=== PATIENT | male | born 2000 | race Caucasian/White ===

== ENCOUNTER 2022-07-22 09:35 | Emergency (ER) | payer BC ==
[2022-07-22] MEDS ORDERED: Diazepam 5 MG Tab PO ONE (10:04)
[2022-07-22] MEDS ORDERED: Ketorolac 30 MG/ML SDV IM STA (10:04)
== END 2022-07-22 10:12 | disposition home or self-care (01) ==
LOC: MW.ED 09:35
DX: S39.012A Strain of muscle, fascia and tendon of lower back, initial encounter (principal); F17.210 Nicotine dependence, cigarettes, uncomplicated; Z88.0 Allergy status to penicillin; Z79.899 Other long term (current) drug therapy; X50.0XXA Overexertion from strenuous movement or load, initial encounter; Y99.0 Civilian activity done for income or pay
CPT/HCPCS: 99283; A9270

== ENCOUNTER 2023-11-16 13:35 | Emergency (ER) | payer SELFPAY ==
[2023-11-16] MEDS: Proparacaine 0.5% Ophth Soln 15 ML Bottle EYERT STA (14:47)
== END 2023-11-16 15:50 | disposition left against medical advice (07) ==
LOC: MW.ED 13:35
DX: T15.11XA Foreign body in conjunctival sac, right eye, initial encounter (principal); Z88.0 Allergy status to penicillin
CPT/HCPCS: 99283; J3490

== ENCOUNTER 2024-08-14 11:28 | Emergency (ER) | payer SELFPAY ==
[2024-08-14] MEDS: Diphtheria,Pertussis(Acell),Tetanus Vaccine 0.5 ML Syringe IM ONE (12:22)
== END 2024-08-14 12:24 | disposition home or self-care (01) ==
LOC: MW.ED 11:28
DX: S61.210A Laceration without foreign body of right index finger without damage to nail, initial encounter (principal); Z88.0 Allergy status to penicillin; Z23 Encounter for immunization; W26.0XXA Contact with knife, initial encounter; Y93.89 Activity, other specified
CPT/HCPCS: 12001; 90471; 90715; 99282-25

== ENCOUNTER 2025-05-23 05:02 | Inpatient (IN) | payer MEDICAID ==
[2025-05-23] MEDS: Ketorolac 30 MG/ML SDV IM ONE (05:47)
[2025-05-23 08:39] LABS: BASOPHILS ABSOLUTE AUTO 0.07 K/uL (0.00-0.20); BASOPHILS PERCENT AUTO 0.6 % (0.0-1.0); EOSINOPHILS ABSOLUTE AUTO 0.22 K/uL (0.00-0.45); EOSINOPHILS PERCENT AUTO 2.0 % (0.0-6.0); IMMATURE GRAN ABSOLUTE AUTO 0.04 K/uL (0.00-0.05); IMMATURE GRAN PERCENT AUTO 0.4 % (0.0-0.4); LYMPHOCYTES ABSOLUTE AUTO 3.81 K/uL (1.00-4.80); LYMPHOCYTES PERCENT AUTO 33.9 % (24.0-44.0); MEAN PLATELET VOLUME 9.8 fL (9.4-12.4); MONOCYTES ABSOLUTE AUTO 1.19 K/uL (0.00-0.80); MONOCYTES PERCENT AUTO 10.6 % (0.0-8.0); NEUTROPHILS ABSOLUTE AUTO 5.90 K/uL (1.80-7.70); NEUTROPHILS PERCENT AUTO 52.5 % (41.0-71.0); NRBC ABSOLUTE 0.00 K/uL (0.00-0.02); NRBC PERCENT 0.0 /100WBC (0.0-0.2); PLATELET COUNT,PLT 249 K/uL (150-400); RED BLOOD CELL COUNT 4.88 M/uL (4.52-5.90); WHITE BLOOD CELL COUNT,WBC 11.23 K/uL (3.9-11.3)
[2025-05-23 09:05] LABS: A/G RATIO 0.9 (0.9-1.6); ALANINE AMINOTRANSFERASE,ALT 22.0 IU/L (14-63); ASPARTATE AMNIOTRANSFERASE,AST 15.0 IU/L (15-37); BILIRUBIN TOTAL 0.4 mg/dL (0.2-1.0); BLOOD UREA NITROGEN,BUN 9.0 mg/dL (7.0-18.0); CARBON DIOXIDE,CO2 26.0 mmol/L (21.0-32.0); CHLORIDE,CL 106.0 mmol/L (98-107); CREATININE 1.3 mg/dL (0.8-1.3); EST CRCL DRUG DOSING (CG) 99.88 mL/min; ETHANOL BLOOD MEDICAL 129.0 mg/dL; GLUCOSE RANDOM 102.0 mg/dL (74-106); POTASSIUM,K 3.7 mmol/L (3.5-5.1); PROTEIN TOTAL,TP 7.4 g/dL (6.4-8.2); SODIUM,NA 142.0 mmol/L (136-148)
[2025-05-23 09:06] LABS: ESTIMATED GFR 79.0 mL/min (>60)
[2025-05-23] MEDS: Iopamidol 755 MG/ML 500 ML Multipack Bottle IVPUSH STA (09:36)
[2025-05-23] MEDS ORDERED: Heparin Sodium 5,000 Units/ML Vial IVPUSH ONE (10:48)
[2025-05-23 11:14] LABS: AMPHETAMINES SCREEN, URINE NEGATIVE (CUTOFF=500); BUPRENORPHINE SCREEN,URINE NEGATIVE (CUTOFF=10); METHADONE SCREEN, URINE NEGATIVE (CUTOFF=200); METHAMPHETAMINES SCREEN, URINE NEGATIVE (CUTOFF=500); OXYCODONE SCREEN,URINE NEGATIVE (CUT0FF=100); PCP SCREEN,URINE NEGATIVE (CUTOFF=25); THC SCREEN,URINE 20 NG/ML PRESUMPTIVE POSITIVE (CUTOFF=50)
[2025-05-23] MEDS: Heparin Sodium/0.45% NaCl 25,000 UNITS/250 ML BAG IV SCH (11:19)
[2025-05-23] MEDS: Heparin Sodium 5,000 Units/ML Vial IVPUSH ONE (11:19)
[2025-05-23] MEDS ORDERED: PHENobarbital Sodium 130 MG/ML SDV IVPUSH PRN (11:45)
[2025-05-23] MEDS ORDERED: Naloxone 0.4 MG/ML SDV IVPUSH PRN (11:46)
[2025-05-23] MEDS ORDERED: Ondansetron 4 MG/2 ML SDV IVPUSH PRN (11:47)
[2025-05-23] MEDS ORDERED: Sodium Chloride 0.9% 2.5 ML Syringe FLUSH PRN (11:47)
[2025-05-23] MEDS ORDERED: Sodium Chloride 0.9% 10 ML Syringe FLUSH PRN (11:47)
[2025-05-23] MEDS ORDERED: Heparin Sodium 5,000 Units/ML Vial IVPUSH PRN (11:49)
[2025-05-23] MEDS: Pantoprazole 40 MG in Sodium Chloride 0.9% 10 ML IVPUSH ONE (12:32)
[2025-05-23] MEDS: SODIUM CHLORIDE 0.9% IV ONE (12:45)
[2025-05-23] MEDS: PHENOBARBITAL SODIUM IV ONE (12:45)
[2025-05-23] MEDS: Warfarin Sliding Scale SCH (15:30)
[2025-05-24] MEDS: Heparin Sodium 5,000 Units/ML Vial IVPUSH ONE ×2 (01:16→16:50)
[2025-05-24] MEDS: Heparin Sodium/0.45% NaCl 25,000 UNITS/250 ML BAG IV SCH (06:49)
[2025-05-24 08:16] LABS: BASOPHILS ABSOLUTE AUTO 0.07 K/uL (0.00-0.20); BASOPHILS PERCENT AUTO 0.7 % (0.0-1.0); EOSINOPHILS ABSOLUTE AUTO 0.23 K/uL (0.00-0.45); EOSINOPHILS PERCENT AUTO 2.4 % (0.0-6.0); IMMATURE GRAN ABSOLUTE AUTO 0.03 K/uL (0.00-0.05); IMMATURE GRAN PERCENT AUTO 0.3 % (0.0-0.4); LYMPHOCYTES ABSOLUTE AUTO 3.43 K/uL (1.00-4.80); LYMPHOCYTES PERCENT AUTO 35.5 % (24.0-44.0); MEAN PLATELET VOLUME 10.0 fL (9.4-12.4); MONOCYTES ABSOLUTE AUTO 0.85 K/uL (0.00-0.80); MONOCYTES PERCENT AUTO 8.8 % (0.0-8.0); NEUTROPHILS ABSOLUTE AUTO 5.04 K/uL (1.80-7.70); NEUTROPHILS PERCENT AUTO 52.3 % (41.0-71.0); NRBC ABSOLUTE 0.00 K/uL (0.00-0.02); NRBC PERCENT 0.0 /100WBC (0.0-0.2); PLATELET COUNT,PLT 244 K/uL (150-400); RED BLOOD CELL COUNT 4.54 M/uL (4.52-5.90); WHITE BLOOD CELL COUNT,WBC 9.65 K/uL (3.9-11.3)
[2025-05-24 08:45] LABS: INR 1.21 (0.86-1.11)
[2025-05-24 08:46] LABS: A/G RATIO 0.9 (0.9-1.6); ALANINE AMINOTRANSFERASE,ALT 17.0 IU/L (14-63); ASPARTATE AMNIOTRANSFERASE,AST 15.0 IU/L (15-37); BILIRUBIN TOTAL 0.7 mg/dL (0.2-1.0); BLOOD UREA NITROGEN,BUN 8.0 mg/dL (7.0-18.0); CARBON DIOXIDE,CO2 27.3 mmol/L (21.0-32.0); CHLORIDE,CL 104.0 mmol/L (98-107); CREATININE 1.2 mg/dL (0.8-1.3); EST CRCL DRUG DOSING (CG) 108.2 mL/min; GLUCOSE RANDOM 86.0 mg/dL (74-106); PHOSPHORUS 4.8 mg/dL (2.6-4.7); POTASSIUM,K 3.4 mmol/L (3.5-5.1); PROTEIN TOTAL,TP 6.5 g/dL (6.4-8.2); SODIUM,NA 139.0 mmol/L (136-148)
[2025-05-24 08:48] LABS: ESTIMATED GFR 87.0 mL/min (>60)
[2025-05-24] MEDS: Potassium Chloride 20 MEQ Tab.ER PO ONE (09:42)
[2025-05-25 06:07] LABS: BASOPHILS ABSOLUTE AUTO 0.05 K/uL (0.00-0.20); BASOPHILS PERCENT AUTO 0.6 % (0.0-1.0); EOSINOPHILS ABSOLUTE AUTO 0.15 K/uL (0.00-0.45); EOSINOPHILS PERCENT AUTO 1.8 % (0.0-6.0); IMMATURE GRAN ABSOLUTE AUTO 0.03 K/uL (0.00-0.05); IMMATURE GRAN PERCENT AUTO 0.4 % (0.0-0.4); LYMPHOCYTES ABSOLUTE AUTO 2.99 K/uL (1.00-4.80); LYMPHOCYTES PERCENT AUTO 35.9 % (24.0-44.0); MEAN PLATELET VOLUME 9.4 fL (9.4-12.4); MONOCYTES ABSOLUTE AUTO 0.79 K/uL (0.00-0.80); MONOCYTES PERCENT AUTO 9.5 % (0.0-8.0); NEUTROPHILS ABSOLUTE AUTO 4.31 K/uL (1.80-7.70); NEUTROPHILS PERCENT AUTO 51.8 % (41.0-71.0); NRBC ABSOLUTE 0.00 K/uL (0.00-0.02); NRBC PERCENT 0.0 /100WBC (0.0-0.2); PLATELET COUNT,PLT 270 K/uL (150-400); RED BLOOD CELL COUNT 4.45 M/uL (4.52-5.90); WHITE BLOOD CELL COUNT,WBC 8.32 K/uL (3.9-11.3)
[2025-05-25 06:29] LABS: A/G RATIO 0.9 (0.9-1.6); ALANINE AMINOTRANSFERASE,ALT 18.0 IU/L (14-63); ASPARTATE AMNIOTRANSFERASE,AST 14.0 IU/L (15-37); BILIRUBIN TOTAL 0.3 mg/dL (0.2-1.0); BLOOD UREA NITROGEN,BUN 8.0 mg/dL (7.0-18.0); CARBON DIOXIDE,CO2 29.2 mmol/L (21.0-32.0); CHLORIDE,CL 105.0 mmol/L (98-107); CREATININE 1.2 mg/dL (0.8-1.3); EST CRCL DRUG DOSING (CG) 108.2 mL/min; GLUCOSE RANDOM 85.0 mg/dL (74-106); POTASSIUM,K 3.9 mmol/L (3.5-5.1); PROTEIN TOTAL,TP 6.6 g/dL (6.4-8.2); SODIUM,NA 141.0 mmol/L (136-148)
[2025-05-25 06:30] LABS: ESTIMATED GFR 87.0 mL/min (>60)
[2025-05-25 07:24] LABS: INR 1.4 (0.86-1.11); PTT,PARTIAL THROMBOPLSTIN TIME 71.2 SEC (23.9-30.7)
[2025-05-26 05:45] LABS: BASOPHILS ABSOLUTE AUTO 0.06 K/uL (0.00-0.20); BASOPHILS PERCENT AUTO 0.7 % (0.0-1.0); EOSINOPHILS ABSOLUTE AUTO 0.16 K/uL (0.00-0.45); EOSINOPHILS PERCENT AUTO 1.8 % (0.0-6.0); IMMATURE GRAN ABSOLUTE AUTO 0.03 K/uL (0.00-0.05); IMMATURE GRAN PERCENT AUTO 0.3 % (0.0-0.4); LYMPHOCYTES ABSOLUTE AUTO 3.04 K/uL (1.00-4.80); LYMPHOCYTES PERCENT AUTO 33.5 % (24.0-44.0); MEAN PLATELET VOLUME 9.5 fL (9.4-12.4); MONOCYTES ABSOLUTE AUTO 1.11 K/uL (0.00-0.80); MONOCYTES PERCENT AUTO 12.2 % (0.0-8.0); NEUTROPHILS ABSOLUTE AUTO 4.68 K/uL (1.80-7.70); NEUTROPHILS PERCENT AUTO 51.5 % (41.0-71.0); NRBC ABSOLUTE 0.00 K/uL (0.00-0.02); NRBC PERCENT 0.0 /100WBC (0.0-0.2); PLATELET COUNT,PLT 280 K/uL (150-400); RED BLOOD CELL COUNT 4.67 M/uL (4.52-5.90); WHITE BLOOD CELL COUNT,WBC 9.08 K/uL (3.9-11.3)
[2025-05-26 05:59] LABS: INR 1.44 (0.86-1.11)
[2025-05-26 06:07] LABS: A/G RATIO 0.8 (0.9-1.6); ALANINE AMINOTRANSFERASE,ALT 21.0 IU/L (14-63); ASPARTATE AMNIOTRANSFERASE,AST 23.0 IU/L (15-37); BILIRUBIN TOTAL 0.2 mg/dL (0.2-1.0); BLOOD UREA NITROGEN,BUN 12.0 mg/dL (7.0-18.0); CARBON DIOXIDE,CO2 29.0 mmol/L (21.0-32.0); CHLORIDE,CL 105.0 mmol/L (98-107); CREATININE 1.1 mg/dL (0.8-1.3); EST CRCL DRUG DOSING (CG) 118.03 mL/min; GLUCOSE RANDOM 90.0 mg/dL (74-106); PHOSPHORUS 3.9 mg/dL (2.6-4.7); POTASSIUM,K 4.2 mmol/L (3.5-5.1); PROTEIN TOTAL,TP 6.8 g/dL (6.4-8.2); SODIUM,NA 141.0 mmol/L (136-148)
[2025-05-26 06:10] LABS: ESTIMATED GFR 97.0 mL/min (>60)
[2025-05-26] MEDS: Heparin Sodium 5,000 Units/ML Vial IVPUSH ONE (08:46)
[2025-05-27 10:03] LABS: B2GLYCPRT1 IGG AB <10 SGU (<=20); B2GLYCPRT1 IGM AB <10 SMU (<=20)
[2025-05-27 13:03] LABS: PROTEIN S TOTAL AG 146 % (84-134)
[2025-05-27 17:07] LABS: PROT S FUNCTIONAL 111 % (66-143)
[2025-05-27 19:02] LABS: PROTEIN C TOTAL AG 56 % (63-153)
[2025-05-27 22:07] LABS: AT III ANTIGEN 81 % (82-136); AT III ENZYMATIC 100 % (76-128); PROT C FUNCTIONAL 63 % (83-168)
[2025-05-28 09:07] LABS: FACTOR V LEIDEN R506Q MUTATION Heterozygous; FACV SPECIMEN Whole Blood
== END 2025-05-26 18:10 | disposition home or self-care (01) | DRG 299 ==
LOC: MW.ED 05:02 → MW.MS 10:52
PROVIDERS: ADMIT Family Medicine; ATTEND Family Medicine
DX: I82.431 Acute embolism and thrombosis of right popliteal vein (principal); I26.94 Multiple subsegmental thrombotic pulmonary emboli without acute cor pulmonale; F10.932 Alcohol use, unspecified with withdrawal with perceptual disturbance; M79.661 Pain in right lower leg; F17.200 Nicotine dependence, unspecified, uncomplicated; F14.91 Cocaine use, unspecified, in remission; Z88.0 Allergy status to penicillin
CPT/HCPCS: 36415; 71275; 71275-26; 73562-26-RT; 73562-RT; 73590-26-RT; 73590-RT; 80053; 80305; 80307; 81241; 83605; 83735; 83880; 84100; 85025; 85300; 85301; 85302; 85303; 85305; 85306; 85610; 85613; 85730; 86146; 86147; 93971-26-RT; 93971-RT; 96372; 99285; A9270-GY; J1644; J1650; J1885; J2470; J2560; Q9967

== ENCOUNTER 2025-06-02 16:26 | Emergency (ER) | payer MEDICAID ==
[2025-06-02 16:45] LABS: BASOPHILS ABSOLUTE AUTO 0.12 K/uL (0.00-0.20); BASOPHILS PERCENT AUTO 1.0 % (0.0-1.0); EOSINOPHILS ABSOLUTE AUTO 0.20 K/uL (0.00-0.45); EOSINOPHILS PERCENT AUTO 1.6 % (0.0-6.0); IMMATURE GRAN ABSOLUTE AUTO 0.04 K/uL (0.00-0.05); IMMATURE GRAN PERCENT AUTO 0.3 % (0.0-0.4); LYMPHOCYTES ABSOLUTE AUTO 2.48 K/uL (1.00-4.80); LYMPHOCYTES PERCENT AUTO 19.8 % (24.0-44.0); MEAN PLATELET VOLUME 9.2 fL (9.4-12.4); MONOCYTES ABSOLUTE AUTO 1.30 K/uL (0.00-0.80); MONOCYTES PERCENT AUTO 10.4 % (0.0-8.0); NEUTROPHILS ABSOLUTE AUTO 8.40 K/uL (1.80-7.70); NEUTROPHILS PERCENT AUTO 66.9 % (41.0-71.0); NRBC ABSOLUTE 0.00 K/uL (0.00-0.02); NRBC PERCENT 0.0 /100WBC (0.0-0.2); PLATELET COUNT,PLT 350 K/uL (150-400); RED BLOOD CELL COUNT 4.69 M/uL (4.52-5.90); WHITE BLOOD CELL COUNT,WBC 12.54 K/uL (3.9-11.3)
[2025-06-02 17:24] LABS: A/G RATIO 0.9 (0.9-1.6); ALANINE AMINOTRANSFERASE,ALT 48.0 IU/L (14-63); ASPARTATE AMNIOTRANSFERASE,AST 36.0 IU/L (15-37); BILIRUBIN TOTAL 0.4 mg/dL (0.2-1.0); BLOOD UREA NITROGEN,BUN 8.0 mg/dL (7.0-18.0); CARBON DIOXIDE,CO2 29.2 mmol/L (21.0-32.0); CHLORIDE,CL 102.0 mmol/L (98-107); CREATININE 1.2 mg/dL (0.8-1.3); EST CRCL DRUG DOSING (CG) 105.08 mL/min; ETHANOL BLOOD MEDICAL 12.0 mg/dL; GLUCOSE RANDOM 87.0 mg/dL (74-106); POTASSIUM,K 4.0 mmol/L (3.5-5.1); PROTEIN TOTAL,TP 7.4 g/dL (6.4-8.2); SODIUM,NA 140.0 mmol/L (136-148)
[2025-06-02 17:25] LABS: ESTIMATED GFR 87.0 mL/min (>60)
[2025-06-02 17:27] LABS: PRO B-TYPE NATRIUR PEPT,BNPPRO 8 pg/mL (0-125)
[2025-06-02 17:32] LABS: INR > 8.00 (0.86-1.11)
[2025-06-02] MEDS: Iopamidol 755 MG/ML 500 ML Multipack Bottle IVPUSH STA (17:47)
== END 2025-06-02 19:18 | disposition home or self-care (01) ==
LOC: MW.ED 16:26
DX: S00.83XA Contusion of other part of head, initial encounter (principal); S09.93XA Unspecified injury of face, initial encounter; R04.0 Epistaxis; R31.0 Gross hematuria; R79.1 Abnormal coagulation profile; R07.9 Chest pain, unspecified; F17.290 Nicotine dependence, other tobacco product, uncomplicated; R06.02 Shortness of breath; Z83.2 Family history of diseases of the blood and blood-forming organs and certain disorders involving the immune mechanism; Z88.0 Allergy status to penicillin; Z79.01 Long term (current) use of anticoagulants; Z86.711 Personal history of pulmonary embolism; Z79.899 Other long term (current) drug therapy; Y04.0XXA Assault by unarmed brawl or fight, initial encounter
CPT/HCPCS: 36415; 70450; 70486; 71046; 71275; 74177; 80053; 80307; 83690; 83735; 83880; 84484; 85025; 85610; 85730; 93005; 99285; Q9967

== ENCOUNTER 2025-06-12 21:09 | Emergency (ER) | payer MEDICAID ==
[2025-06-12 22:12] LABS: BASOPHILS ABSOLUTE AUTO 0.06 K/uL (0.00-0.20); BASOPHILS PERCENT AUTO 0.7 % (0.0-1.0); EOSINOPHILS ABSOLUTE AUTO 0.08 K/uL (0.00-0.45); EOSINOPHILS PERCENT AUTO 1.0 % (0.0-6.0); IMMATURE GRAN ABSOLUTE AUTO 0.02 K/uL (0.00-0.05); IMMATURE GRAN PERCENT AUTO 0.2 % (0.0-0.4); LYMPHOCYTES ABSOLUTE AUTO 1.78 K/uL (1.00-4.80); LYMPHOCYTES PERCENT AUTO 21.7 % (24.0-44.0); MEAN PLATELET VOLUME 9.5 fL (9.4-12.4); MONOCYTES ABSOLUTE AUTO 0.66 K/uL (0.00-0.80); MONOCYTES PERCENT AUTO 8.0 % (0.0-8.0); NEUTROPHILS ABSOLUTE AUTO 5.60 K/uL (1.80-7.70); NEUTROPHILS PERCENT AUTO 68.4 % (41.0-71.0); NRBC ABSOLUTE 0.00 K/uL (0.00-0.02); NRBC PERCENT 0.0 /100WBC (0.0-0.2); PLATELET COUNT,PLT 301 K/uL (150-400); RED BLOOD CELL COUNT 4.29 M/uL (4.52-5.90); WHITE BLOOD CELL COUNT,WBC 8.20 K/uL (3.9-11.3)
[2025-06-12 22:27] LABS: INR 1.1 (0.86-1.11); PTT,PARTIAL THROMBOPLSTIN TIME 26.7 SEC (23.9-30.7)
[2025-06-12 22:47] LABS: A/G RATIO 0.9 (0.9-1.6); ALANINE AMINOTRANSFERASE,ALT 21.0 IU/L (14-63); ASPARTATE AMNIOTRANSFERASE,AST 19.0 IU/L (15-37); BILIRUBIN TOTAL 0.4 mg/dL (0.2-1.0); BLOOD UREA NITROGEN,BUN 12.0 mg/dL (7.0-18.0); CARBON DIOXIDE,CO2 27.1 mmol/L (21.0-32.0); CHLORIDE,CL 106.0 mmol/L (98-107); CREATININE 1.4 mg/dL (0.8-1.3); EST CRCL DRUG DOSING (CG) 90.07 mL/min; GLUCOSE RANDOM 89.0 mg/dL (74-106); POTASSIUM,K 3.8 mmol/L (3.5-5.1); PROTEIN TOTAL,TP 7.3 g/dL (6.4-8.2); SODIUM,NA 141.0 mmol/L (136-148)
[2025-06-12 22:48] LABS: ESTIMATED GFR 72.0 mL/min (>60)
== END 2025-06-12 23:45 | disposition home or self-care (01) ==
LOC: MW.ED 21:09
DX: I82.612 Acute embolism and thrombosis of superficial veins of left upper extremity (principal); I26.94 Multiple subsegmental thrombotic pulmonary emboli without acute cor pulmonale; D68.51 Activated protein C resistance; Z88.0 Allergy status to penicillin; Z79.01 Long term (current) use of anticoagulants; Z79.899 Other long term (current) drug therapy; Z75.3 Unavailability and inaccessibility of health-care facilities
CPT/HCPCS: 36415; 80053; 85025; 85610; 85730; 93970; 96372; 99284; A9270; J1650

== ENCOUNTER 2025-06-26 16:39 | Emergency (ER) | payer MEDICAID ==
[2025-06-26] MEDS ORDERED: Sodium Chloride 0.9% 2.5 ML Syringe FLUSH PRN (17:14)
[2025-06-26] MEDS ORDERED: Sodium Chloride 0.9% 10 ML Syringe FLUSH PRN (17:14)
[2025-06-26 17:31] LABS: BASOPHILS ABSOLUTE AUTO 0.06 K/uL (0.00-0.20); BASOPHILS PERCENT AUTO 0.7 % (0.0-1.0); EOSINOPHILS ABSOLUTE AUTO 0.10 K/uL (0.00-0.45); EOSINOPHILS PERCENT AUTO 1.1 % (0.0-6.0); IMMATURE GRAN ABSOLUTE AUTO 0.01 K/uL (0.00-0.05); IMMATURE GRAN PERCENT AUTO 0.1 % (0.0-0.4); LYMPHOCYTES ABSOLUTE AUTO 1.68 K/uL (1.00-4.80); LYMPHOCYTES PERCENT AUTO 19.3 % (24.0-44.0); MEAN PLATELET VOLUME 10.2 fL (9.4-12.4); MONOCYTES ABSOLUTE AUTO 0.85 K/uL (0.00-0.80); MONOCYTES PERCENT AUTO 9.7 % (0.0-8.0); NEUTROPHILS ABSOLUTE AUTO 6.02 K/uL (1.80-7.70); NEUTROPHILS PERCENT AUTO 69.1 % (41.0-71.0); NRBC ABSOLUTE 0.00 K/uL (0.00-0.02); NRBC PERCENT 0.0 /100WBC (0.0-0.2); PLATELET COUNT,PLT 266 K/uL (150-400); RED BLOOD CELL COUNT 4.75 M/uL (4.52-5.90); WHITE BLOOD CELL COUNT,WBC 8.72 K/uL (3.9-11.3)
[2025-06-26 17:44] LABS: INR 1.41 (0.86-1.11); PTT,PARTIAL THROMBOPLSTIN TIME 27.9 SEC (23.9-30.7)
[2025-06-26 18:01] LABS: A/G RATIO 1.1 (0.9-1.6); ALANINE AMINOTRANSFERASE,ALT 19.0 IU/L (14-63); ASPARTATE AMNIOTRANSFERASE,AST 18.0 IU/L (15-37); BILIRUBIN TOTAL 0.6 mg/dL (0.2-1.0); BLOOD UREA NITROGEN,BUN 12.0 mg/dL (7.0-18.0); CARBON DIOXIDE,CO2 28.7 mmol/L (21.0-32.0); CHLORIDE,CL 104.0 mmol/L (98-107); CREATININE 1.1 mg/dL (0.8-1.3); EST CRCL DRUG DOSING (CG) 118.03 mL/min; ESTIMATED GFR 97.0 mL/min (>60); GLUCOSE RANDOM 90.0 mg/dL (74-106); POTASSIUM,K 4.1 mmol/L (3.5-5.1); PROTEIN TOTAL,TP 7.6 g/dL (6.4-8.2); SODIUM,NA 140.0 mmol/L (136-148)
== END 2025-06-26 19:27 | disposition home or self-care (01) ==
LOC: MW.ED 16:39
DX: R04.2 Hemoptysis (principal); R79.1 Abnormal coagulation profile; Z75.3 Unavailability and inaccessibility of health-care facilities; Z88.0 Allergy status to penicillin
CPT/HCPCS: 36415; 71046; 80053; 85025; 85610; 85730; 96360; 96361; 99285; J7030

== ENCOUNTER 2025-07-04 05:41 | Emergency (ER) | payer MEDICAID ==
[2025-07-04 05:59] LABS: BASOPHILS ABSOLUTE AUTO 0.08 K/uL (0.00-0.20); BASOPHILS PERCENT AUTO 0.7 % (0.0-1.0); EOSINOPHILS ABSOLUTE AUTO 0.21 K/uL (0.00-0.45); EOSINOPHILS PERCENT AUTO 1.8 % (0.0-6.0); IMMATURE GRAN ABSOLUTE AUTO 0.02 K/uL (0.00-0.05); IMMATURE GRAN PERCENT AUTO 0.2 % (0.0-0.4); LYMPHOCYTES ABSOLUTE AUTO 2.56 K/uL (1.00-4.80); LYMPHOCYTES PERCENT AUTO 22.5 % (24.0-44.0); MEAN PLATELET VOLUME 10.2 fL (9.4-12.4); MONOCYTES ABSOLUTE AUTO 1.15 K/uL (0.00-0.80); MONOCYTES PERCENT AUTO 10.1 % (0.0-8.0); NEUTROPHILS ABSOLUTE AUTO 7.34 K/uL (1.80-7.70); NEUTROPHILS PERCENT AUTO 64.7 % (41.0-71.0); NRBC ABSOLUTE 0.00 K/uL (0.00-0.02); NRBC PERCENT 0.0 /100WBC (0.0-0.2); PLATELET COUNT,PLT 262 K/uL (150-400); RED BLOOD CELL COUNT 4.86 M/uL (4.52-5.90); WHITE BLOOD CELL COUNT,WBC 11.36 K/uL (3.9-11.3)
[2025-07-04 06:14] LABS: INR 1.27 (0.86-1.11)
[2025-07-04] MEDS: Iopamidol 755 MG/ML 500 ML Multipack Bottle IVPUSH STA (06:21)
[2025-07-04 06:24] LABS: BLOOD UREA NITROGEN,BUN 14 mg/dL (7.0-18.0); CARBON DIOXIDE,CO2 27.4 mmol/L (21.0-32.0); CHLORIDE,CL 106 mmol/L (98-107); CREATININE 1.3 mg/dL (0.8-1.3); EST CRCL DRUG DOSING (CG) 102.75 mL/min; GLUCOSE RANDOM 82 mg/dL (74-106); POTASSIUM,K 4.0 mmol/L (3.5-5.1); SODIUM,NA 144 mmol/L (136-148)
[2025-07-04 06:25] LABS: ESTIMATED GFR 79 mL/min (>60)
[2025-07-04 07:06] LABS: A/G RATIO 1.1 (0.9-1.6); ALANINE AMINOTRANSFERASE,ALT 20.0 IU/L (14-63); ASPARTATE AMNIOTRANSFERASE,AST 15.0 IU/L (15-37); BILIRUBIN DIRECT 0.1 mg/dL (0.0-0.5); BILIRUBIN INDIRECT 0.2; BILIRUBIN TOTAL 0.3 mg/dL (0.2-1.0); PROTEIN TOTAL,TP 7.9 g/dL (6.4-8.2)
== END 2025-07-04 09:51 | disposition home or self-care (01) ==
LOC: MW.ED 05:41
DX: R07.1 Chest pain on breathing (principal); Z88.0 Allergy status to penicillin; Z79.01 Long term (current) use of anticoagulants
CPT/HCPCS: 36415; 71275; 80048; 80076; 84484; 85025; 85610; 93005; 99285; A9270; Q9967; 99284